=== PATIENT | female | born 1990 | race Caucasian/White ===

== ENCOUNTER 2020-06-24 07:55 | Outpatient (REF) | payer OTHER, SELFPAY ==
[2020-06-26 15:46] LABS: HPV mRNA E6/E7 rflx Not Detected (Not Detected)
== END 2020-06-24 07:56 | disposition home or self-care (01) ==
LOC: HO.LAB 07:55
PROVIDERS: PCP Internal Medicine; Visit Provider Advanced Practice Midwife
DX: Z01.419 Encounter for gynecological examination (general) (routine) without abnormal findings (principal); Z11.51 Encounter for screening for human papillomavirus (HPV); R35.0 Frequency of micturition; Z80.3 Family history of malignant neoplasm of breast
CPT/HCPCS: 81003; 87624; 88142

== ENCOUNTER → 2021-06-26 07:57 | Outpatient (BNVA) | payer OTHER, SELFPAY | PROVIDERS: PCP Internal Medicine; Visit Provider Advanced Practice Midwife | DX: Z13.89 Encounter for screening for other disorder (principal) ==

== ENCOUNTER 2022-11-25 08:15 | Outpatient (AMB) | payer OTHER, SELFPAY ==
--- NOTE | 2022-11-25 08:16 | A.OFFVIS_ITS ---
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 Scribed for JASBIR Phipps by Pamela Person medical staff services coordinator, on 11/25/2022 at 8:31 am EST. Large Animal Veterinarian: Large Animal Veterinarian Present (Mary) Allergies No Known Allergies Allergy (Verified 11/25/22 08:17) Is last menstrual period known: Yes Last menstrual period: 11/08/22 HPI HPI Comments History of Present Illness Details She is a premenopausal woman presenting for annual exam. Doing well with no java technical architect concerns. She admits to eating healthy and tries to stay active with exercise. Currently sexually active. Does not use any form of BC and is interested in future . Has been tracking ovulation and using ovulation kits. Currently taking PNV gummies. Denies vaginal itching and irritation. Denies family hx of colon and ovarian cancer. BRCA negative. Last pap smear 06/24/20. PFSH Surgical History Hx of dilation and curettage Hx of section Family History Mother History of breast cancer, Onset Age: 25 Maternal Grandmother History of breast cancer Social History Alcohol intake: current Alcohol intake frequency: a few times a month Patient Tobacco Use Status: Never used Tobacco Current occupational status: employed Current occupation: ED nurse at [employer] Sexual orientation: Straight/Heterosexual Gender identity: Female Female Reproductive History Menstrual Age of Menarche: 11 Duration of menses: 3-5 days Date of last menstrual period: 11/08/22 control method: none Total pregnancies: 3 Full term: 2 Number of Living Children: 2 Date of last pap smear: 06/24/20 (neg pap and hpv) Physical Exam Vital Signs: Last Vital Signs BP 92/60 11/25/22 08:22 BMI result Body Mass Index 25.4 Const General: cooperative, healthy appearing, no acute distress, well developed and alert Orientation/consciousness: patient oriented x3 HEENT Head: Yes normal to inspection Eyes General: appearance normal, both eyes and all related structures Neck Neck: Yes normal visual inspection Thyroid: Thyroid normal Chest Chest palpation & inspection: normal inspection of the chest Breast/axilla inspection: normal inspection of the breasts (no puckering, dimpling, peau de orange, retraction, discharge, masses) Breast/axilla palpation: normal palpation of the breasts Resp Effort & Inspection: normal respiratory effort GI Inspection: Yes normal to inspection Palpation (GI): Soft to palpation (to palpation) Rectal Exam - Female: deferred General: Yes bladder normal to inspection External Female Exam: normal external appearance and normal appearance of the urethra Speculum Exam - Vagina: normal appearance of the vagina, normal palpation and normal vaginal discharge Speculum Exam - Cervix: normal appearance of the cervix and normal palpation Bimanual exam- vagina & uterus: normal palpation and normal palpation Bimanual Exam- Adnexa, other: normal adnexae and no masses Skin General skin exam: no rashes or lesions noted Neuro General: patient oriented x3 Cognition (Neuro): normal cognition Extrem General: Yes normal to inspection Psych Attitude: cooperative Thought process: Normal thought process present Assessment & Plan Assessment & Plan (1) Encounter for well woman exam: Code(s): Z01.419 - Encounter for gynecological examination (general) (routine) without abnormal findings Plan: Discussed: Current recommendations for pap smears per ASCCP guidelines. Breast awareness and periodic self breast exams. Maintaining a healthy lifestyle including a well balanced diet and routine exercise. PNV Rx sent to pharmacy. Informed if interested in infertility consult, consult office for referral. All of her questions and concerns were addressed to the best of my ability. RTO in one year for AG. Coding Level of Care Code Est Pt Prev Care 18-39y(90298) Diagnoses Encounter for well woman exam Z01.419
[2022-11-25 08:22] VITALS: BP 92/60; BMI 25.4
== END 2022-11-25 08:50 | disposition home or self-care (01) ==
PROVIDERS: Visit Provider Advanced Practice Midwife
DX: Z01.419 Encounter for gynecological examination (general) (routine) without abnormal findings (principal)
CPT/HCPCS: 99395

== ENCOUNTER → 2022-11-25 08:15 | Outpatient (BNVA) | payer OTHER, SELFPAY | PROVIDERS: Visit Provider Advanced Practice Midwife ==

== ENCOUNTER 2023-11-30 13:51 | Outpatient (AMB) | payer OTHER, SELFPAY ==
--- NOTE | 2023-11-30 14:00 | MHC.OFFVIS ---
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 Doing well with no concerns. She tries to eat healthy and stays active with exercise. Regular monthly menses. Plans for a future has a consult with [facility], has been trying since 09/17/2022, using ovulation predictor kits. He has not had children in the past. She denies vaginal itching and irritation. Denies family history of ovarian or colon cancer. FH breast cancer-mom, BRCA negative. Last pap smear 2020, negative. 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 Gender identity: Female Female Reproductive History Menstrual Age of Menarche: 11 Duration of menses: 3-5 days Date of last menstrual period: 11/13/23 control method: none Total pregnancies: 3 Full term: 2 Number of Living Children: 2 Date of last pap smear: 06/24/20 (neg pap and hpv) Review of Systems Const All systems reviewed & are unremarkable except as noted in HPI and below Reports as per HPI Eyes Reports no additional complaints ENT Reports no additional complaints Card Reports no additional complaints Resp Reports no additional complaints GI Reports as per HPI and Reports no additional complaints Reports as per HPI Musc Reports no additional complaints Skin/Breast Reports as per HPI Neuro Reports no additional complaints Psych Reports no additional complaints Endo Reports no additional complaints Gabe/Lymph Reports no additional complaints Aller/Immun Reports no additional complaints Physical Exam Vital Signs: Last Vital Signs BP 90/62 11/30/23 14:01 BMI result Body Mass Index 24.5 Const General: cooperative, healthy appearing, no acute distress, well developed and alert Orientation/consciousness: patient oriented x3 HEENT Head: Yes normal to inspection Eyes General: appearance normal, both eyes and all related structures Neck Neck: Yes normal visual inspection Thyroid: Thyroid normal Chest Chest palpation & inspection: normal inspection of the chest and other (no puckering, dimpling, peau de orange, retraction, discharge, masses) Breast/axilla inspection: normal inspection of the breasts Breast/axilla palpation: normal palpation of the breasts Resp Effort & Inspection: normal respiratory effort GI Inspection: Yes normal to inspection Palpation (GI): Soft to palpation Rectal Exam - Female: deferred General: Yes bladder normal to palpation External Female Exam: normal external appearance and normal appearance of the urethra Speculum Exam - Vagina: normal appearance of the vagina, normal palpation and normal vaginal discharge Speculum Exam - Cervix: normal appearance of the cervix and normal palpation Bimanual exam- vagina & uterus: normal bimanual exam, normal palpation, uterine size normal, bladder normal to palpation, normal palpation and non-tender Bimanual Exam- Adnexa, other: no masses Skin General skin exam: no rashes or lesions noted Rashes: no rashes Neuro General: patient oriented x3 Cognition (Neuro): normal cognition Extrem General: Yes normal to inspection Psych Attitude: cooperative Thought process: Normal thought process present Assessment & Plan Assessment & Plan (1) Encounter for annual routine gynecological examination: Code(s): Z01.419 - Encounter for gynecological examination (general) (routine) without abnormal findings Category: Medical Plan Discussed: Current recommendations for pap smears per ASCCP guidelines. Breast awareness and periodic breast exams. Maintain a healthy lifestyle including a well balanced diet and routine exercise. Patient verbalizes understanding and agrees to the plan of care. She was given opportunity to ask questions and all questions were answered to the best of my ability. 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 This note is constructed using voice recognition software. While every effort has been made to ensure accuracy, stone cutter errors may have been included. Coding Level of Care Code Est Pt Prev Care 18-39y(64119) Diagnoses Encounter for annual routine gynecological examination Z01.419
[2023-11-30 14:01] VITALS: BP 90/62; BMI 24.5
== END 2023-11-30 14:23 | disposition home or self-care (01) ==
PROVIDERS: PCP Internal Medicine; Visit Provider Advanced Practice Midwife
DX: Z01.419 Encounter for gynecological examination (general) (routine) without abnormal findings (principal)
CPT/HCPCS: 99395

== ENCOUNTER → 2023-11-30 13:51 | Outpatient (BNVA) | payer OTHER, SELFPAY | PROVIDERS: PCP Internal Medicine; Visit Provider Advanced Practice Midwife ==